=== PATIENT | male | born 1950 | race Two or more races ===

== ENCOUNTER → 2020-07-24 | Outpatient (CLI) | payer MEDICARE, OTHER ==
--- NOTE | 2020-07-24 12:22 | US ---
EXAMINATION TYPE: US duplex aorta DATE OF EXAM: 07/24/2020 COMPARISON: NONE CLINICAL HISTORY: 70-year-old male I99.8 Vascular calcification. TECHNIQUE: Multiple sonographic images of the abdominal aorta are obtained. FINDINGS: EXAM MEASUREMENTS: Abdominal Aorta largest diameter: Proximal: 2.4 x 1.8 cm. Mid: 1.8 x 1.8 cm. Distal: 1.5 x 1.4 cm Bifurcation: obscured by bowel gas Moderate atherosclerotic irregularity and calcifications are present throughout. Seed Cleaning Manager notes: Technically difficult, limited study, large midline hernia, and extensive overlyi ng bowel gas. Limited visualization. IMPRESSION: 1. Technically difficult and limited exam due to combination of bowel gas and a large midline hernia as reported by the railroad track repair supervisor. Clinically correlate. 2. No visualized AAA. Moderate atherosclerotic changes throughout the abdominal aorta.
== END | disposition home or self-care (01) ==
LOC: RADUSWWP 09:41
PROVIDERS: ATTEND Family Medicine
DX: I70.0 Atherosclerosis of aorta (principal); K46.9 Unspecified abdominal hernia without obstruction or gangrene
CPT/HCPCS: 93979

== ENCOUNTER 2021-06-22 07:49 | Inpatient (IN) | payer MEDICARE, OTHER ==
[2021-06-22] MEDS ORDERED: ALBUTEROL NEBULIZED 2.5 MG/3 ML INHALATION STA (07:53)
[2021-06-22] MEDS ORDERED: IPRATROPIUM 0.5 MG/2.5 ML NEBU INHALATION STA (07:53)
--- NOTE | 2021-06-22 08:20 | ED ---
General Adult HPI - General Chief complaint: Shortness of Breath Stated complaint: MOISÉS Time Seen by Provider: 06/22/21 07:53 Source: patient, EMS, RN notes reviewed, old records reviewed Mode of arrival: EMS Limitations: no limitations - History of Present Illness Initial comments: 71-year-old male presented by EMS with dyspnea. Patient's symptoms began approximately one hour prior to arrival. He states he has had some significant cough. History is limited secondary to patient's respiratory distress. He denies central chest pain. Denies fever. He states he has been vaccinated against coronavirus. Patient was found to be hypoxic and hypertensive by EMS. He was placed on BiPAP, given Solu-Medrol, Atrovent, albuterol and nitroglycerin during transport. - Related Data Home Medications Medication Instructions Recorded Confirmed ALPRAZolam [Xanax] 0.25 mg PO TID PRN 06/22/21 06/22/21 Aspirin EC [Ecotrin Low Dose] 81 mg PO DAILY 06/22/21 06/22/21 Atorvastatin [Lipitor] 40 mg PO HS 06/22/21 06/22/21 Ergocalciferol [Vitamin D2 (1250 1,250 mcg PO QMONTHLY 06/22/21 06/22/21 Mcg = 23674 Iu)] Fenofibrate [Lofibra] 160 mg PO DAILY 06/22/21 06/22/21 Glucagon Emergency Kit 1 mg IM ONCE PRN 06/22/21 06/22/21 HYDROcodone/APAP 10-325MG [[place] 1 tab PO TID PRN 06/22/21 06/22/21 10-325] INSULIN ASPART (NovoLOG) [NovoLOG 11 units SQ W/BRKFST 06/22/21 06/22/21 (formulary)] INSULIN ASPART (NovoLOG) [NovoLOG 16 units SQ W/SUPPER 06/22/21 06/22/21 (formulary)] Insulin Detemir [Levemir Flextouch 74 units SQ DAILY 06/22/21 06/22/21 Pen] Metoprolol Tartrate [Lopressor] 25 mg PO DAILY 06/22/21 06/22/21 Nitroglycerin Sl Tabs [Nitrostat] 0.4 mg SUBLINGUAL Q5M PRN 06/22/21 06/22/21 Omeprazole 20 mg PO DAILY 06/22/21 06/22/21 Pregabalin [Lyrica] 150 mg PO TID 06/22/21 06/22/21 Semaglutide [Ozempic] 0.25 mg SQ FR 06/22/21 06/22/21 busPIRone HCL 15 mg PO TID 06/22/21 06/22/21 lisinopriL [Prinivil] 20 mg PO DAILY 06/22/21 06/22/21 sitaGLIPtin [Januvia] 100 mg PO DAILY 06/22/21 06/22/21 Allergies Allergy/AdvReac Type Severity Reaction Status Date / Time No Known Allergies Allergy Verified 06/22/21 09:28 Review of Systems ROS Statement: Those systems with pertinent positive or pertinent negative responses have been documented in the HPI. ROS Other: All systems not noted in ROS Statement are negative. Past Medical History Past Medical History: Unable to Obtain History of Any Multi-Drug Resistant Organisms: None Reported Past Surgical History: Unable to Obtain Past Psychological History: No Psychological Hx Reported Past Alcohol Use History: Unable to Obtain Past Drug Use History: Unable to Obtain General Exam Limitations: no limitations General appearance: alert, anxious, in distress Head exam: Present: atraumatic, normocephalic Eye exam: Present: normal appearance, PERRL Neck exam: Present: normal inspection. Absent: tenderness, meningismus Respiratory exam: Present: respiratory distress, wheezes, rhonchi, accessory muscle use, decreased breath sounds Cardiovascular Exam: Present: normal rhythm, tachycardia GI/Abdominal exam: Present: soft. Absent: distended, tenderness, guarding Extremities exam: Present: normal inspection, normal capillary refill. Absent: pedal edema Neurological exam: Present: alert, oriented X3, CN II-XII intact. Absent: motor sensory deficit Psychiatric exam: Present: anxious Skin exam: Present: warm, dry, intact. Absent: cyanosis, diaphoretic Course Vital Signs 06/22/21 06/22/21 06/22/21 07:53 08:07 08:20 Temperature 100.6 F H Pulse Rate 149 H 130 H 125 H Respiratory 18 20 Rate Blood Pressure 157/96 105/70 O2 Sat by Pulse 88 L 100 Oximetry 06/22/21 06/22/21 06/22/21 08:31 08:51 09:08 Temperature Pulse Rate 130 H 133 H 122 H Respiratory 20 18 Rate Blood Pressure 88/62 92/60 O2 Sat by Pulse 97 98 Oximetry 06/22/21 09:57 Temperature Pulse Rate 110 H Respiratory 20 Rate Blood Pressure 87/58 O2 Sat by Pulse 99 Oximetry EKG Findings - EKG Comments: EKG Findings:: EKG: Sinus tachycardia, rightward axis, rate of 132, IL interval 160, QRS duration 82, QTC 431, no ST segment elevation Medical Decision Making - Medical Decision Making 71-year-old male with dyspnea and cough. He has a low-grade fever. I did initiate workup for this patient. Chest x-ray showed multifocal pneumonia versus CHF. The sudden onset did point towards congestive heart failure or pulm onary embolism. However CT angiography is negative for pulmonary embolism, the BMP and troponin are negative. Patient will be treated for pneumonia at this time. Started on azithromycin and ceftriaxone, given fluid in the emergency department. I did discuss case with Dr. Galan who will admit. Normal CBC, normal electrolytes and kidney function, negative troponin, negative BNP, positive lactic acid at 3.7 treated with IV hydration and fluid boluses. - Lab Data Result diagrams: 06/22/21 08:13 06/22/21 08:13 Lab Results 06/22/21 06/22/21 06/22/21 Range/Units 08:13 08:13 08:13 WBC 7.0 (3.8-10.6) k/uL RBC 4.99 (4.30-5.90) m/uL Hgb 16.2 (13.0-17.5) gm/dL Hct 46.7 (39.0-53.0) % MCV 93.7 (80.0-100.0) fL MCH 32.4 (25.0-35.0) pg MCHC 34.6 (31.0-37.0) g/dL RDW 13.5 (11.5-15.5) % Plt Count 143 L (150-450) k/uL MPV 10.0 Neutrophils % 57 % Lymphocytes % 33 % Monocytes % 2 % Eosinophils % 6 % Basophils % 0 % Neutrophils # 4.0 (1.3-7.7) k/uL Lymphocytes # 2.3 (1.0-4.8) k/uL Monocytes # 0.1 (0-1.0) k/uL Eosinophils # 0.4 (0-0.7) k/uL Basophils # 0.0 (0-0.2) k/uL PT 10.6 (9.0-12.0) sec INR 1.0 (<1.2) APTT 21.6 L (22.0-30.0) sec D-Dimer 1.78 H (<0.60) mg/L FEU VBG pH (7.31-7.41) VBG pCO2 (37-51) mmHg VBG HCO3 (24-28) mmol/L Sodium 138 (137-145) mmol/L Potassium 4.4 (3.5-5.1) mmol/L Chloride 104 (98-107) mmol/L Carbon Dioxide 21 L (22-30) mmol/L Anion Gap 13 mmol/L BUN 14 (9-20) mg/dL Creatinine 1.09 (0.66-1.25) mg/dL Est GFR (CKD-EPI)AfAm 80 (>60 ml/min/1.73 sqM) Est GFR (CKD-EPI)NonAf 69 (>60 ml/min/1.73 sqM) Glucose 145 H (74-99) mg/dL Plasma Lactic Acid Joshua (0.7-2.0) mmol/L Calcium 9.1 (8.4-10.2) mg/dL Magnesium 1.6 (1.6-2.3) mg/dL Total Bilirubin 1.1 (0.2-1.3) mg/dL AST 42 (17-59) U/L ALT 25 (4-49) U/L Alkaline Phosphatase 209 H (38-126) U/L Troponin I (0.000-0.034) ng/mL NT-Pro-B Natriuret Pep pg/mL Total Protein 7.5 (6.3-8.2) g/dL Albumin 4.3 (3.5-5.0) g/dL Coronavirus (PCR) (Not Detectd) 06/22/21 06/22/21 06/22/21 Range/Units 08:13 08:13 08:13 WBC (3.8-10.6) k/uL RBC (4.30-5.90) m/uL Hgb (13.0-17.5) gm/dL Hct (39.0-53.0) % MCV (80.0-100.0) fL MCH (25.0-35.0) pg MCHC (31.0-37.0) g/dL RDW (11.5-15.5) % Plt Count (150-450) k/uL MPV Neutrophils % % Lymphocytes % % Monocytes % % Eosinophils % % Basophils % % Neutrophils # (1.3-7.7) k/uL Lymphocytes # (1.0-4.8) k/uL Monocytes # (0-1.0) k/uL Eosinophils # (0-0.7) k/uL Basophils # (0-0.2) k/uL PT (9.0-12.0) sec INR (<1.2) APTT (22.0-30.0) sec D-Dimer (<0.60) mg/L FEU VBG pH (7.31-7.41) VBG pCO2 (37-51) mmHg VBG HCO3 (24-28) mmol/L Sodium (137-145) mmol/L Potassium (3.5-5.1) mmol/L Chloride (98-107) mmol/L Carbon Dioxide (22-30) mmol/L Anion Gap mmol/L BUN (9-20) mg/dL Creatinine (0.66-1.25) mg/dL Est GFR (CKD-EPI)AfAm (>60 ml/min/1.73 sqM) Est GFR (CKD-EPI)NonAf (>60 ml/min/1.73 sqM) Glucose (74-99) mg/dL Plasma Lactic Acid Joshua 3.7 H* (0.7-2.0) mmol/L Calcium (8.4-10.2) mg/dL Magnesium (1.6-2.3) mg/dL Total Bilirubin (0.2-1.3) mg/dL AST (17-59) U/L ALT (4-49) U/L Alkaline Phosphatase (38-126) U/L Troponin I <0.012 (0.000-0.034) ng/mL NT-Pro-B Natriuret Pep 21 pg/mL Total Protein (6.3-8.2) g/dL Albumin (3.5-5.0) g/dL Coronavirus (PCR) (Not Detectd) 06/22/21 06/22/21 Range/Units 08:13 08:13 WBC (3.8-10.6) k/uL RBC (4.30-5.90) m/uL Hgb (13.0-17.5) gm/dL Hct (39.0-53.0) % MCV (80.0-100.0) fL MCH (25.0-35.0) pg MCHC (31.0-37.0) g/dL RDW (11.5-15.5) % Plt Count (150-450) k/uL MPV Neutrophils % % Lymphocytes % % Monocytes % % Eosinophils % % Basophils % % Neutrophils # (1.3-7.7) k/uL Lymphocytes # (1.0-4.8) k/uL Monocytes # (0-1.0) k/uL Eosinophils # (0-0.7) k/uL Basophils # (0-0.2) k/uL PT (9.0-12.0) sec INR (<1.2) APTT (22.0-30.0) sec D-Dimer (<0.60) mg/L FEU VBG pH 7.35 (7.31-7.41) VBG pCO2 42 (37-51) mmHg VBG HCO3 22 L (24-28) mmol/L Sodium (137-145) mmol/L Potassium (3.5-5.1) mmol/L Chloride (98-107) mmol/L Carbon Dioxide (22-30) mmol/L Anion Gap mmol/L BUN (9-20) mg/dL Creatinine (0.66-1.25) mg/dL Est GFR (CKD-EPI)AfAm (>60 ml/min/1.73 sqM) Est GFR (CKD-EPI)NonAf (>60 ml/min/1.73 sqM) Glucose (74-99) mg/dL Plasma Lactic Acid Joshua (0.7-2.0) mmol/L Calcium (8.4-10.2) mg/dL Magnesium (1.6-2.3) mg/dL Total Bilirubin (0.2-1.3) mg/dL AST (17-59) U/L ALT (4-49) U/L Alkaline Phosphatase (38-126) U/L Troponin I (0.000-0.034) ng/mL NT-Pro-B Natriuret Pep pg/mL Total Protein (6.3-8.2) g/dL Albumin (3.5-5.0) g/dL Coronavirus (PCR) Not Detected (Not Detectd) Critical Care Time Critical Care Time: Yes Total Critical Care Time: 35 Disposition Clinical Impression: Community acquired pneumonia Disposition: ADMITTED IP TO THIS [facility] Condition: Stable Is patient prescribed a controlled substance at d/c from ED?: No Referrals: Antoni Galan MD [Primary Care Provider] - 1-2 days Decision to Admit Reason: Admit from EC Decision Date: 06/22/21 Decision Time: 10:44
[2021-06-22 08:22] LABS: Basophils % (A) 0 %; Eosinophils # (A) 0.4 k/uL (0-0.7); Eosinophils % (A) 6 %; HCT 46.7 % (39.0-53.0); HGB 16.2 gm/dL (13.0-17.5); Lymphocytes # (A) 2.3 k/uL (1.0-4.8); Lymphocytes % (A) 33 %; MCH 32.4 pg (25.0-35.0); MCHC 34.6 g/dL (31.0-37.0); MCV 93.7 fL (80.0-100.0); Monocytes # (A) 0.1 k/uL (0-1.0); Monocytes % (A) 2 %; Neutrophils % (A) 57 %; Platelet Count 143 k/uL (150-450); RBC 4.99 m/uL (4.30-5.90); RDW 13.5 % (11.5-15.5)
[2021-06-22 08:24] LABS: VBG PH 7.35 (7.31-7.41)
[2021-06-22] MEDS ORDERED: SODIUM CHLORIDE 0.9% 500 ML 500 ML IV ONE ×2 (08:52→10:04)
--- NOTE | 2021-06-22 08:55 | XR ---
EXAMINATION TYPE: XR chest 1V portable DATE OF EXAM: 06/22/2021 COMPARISON: 07/09/2010 HISTORY: Shortness of breath TECHNIQUE: Single frontal view of the chest is obtained. FINDINGS: A diffuse multifocal areas of infiltrate. Heart size normal. No pneumothorax. Tiny pleural effusions not excluded. Heart size stable. Arthropathy of the shoulders. IMPRESSION: Multifocal diffuse infiltrates correlate for pneumonia otherwise consider pulmonary jody a.
[2021-06-22 08:58] LABS: Albumin 4.3 g/dL (3.5-5.0); Calcium 9.1 mg/dL (8.4-10.2); Total Bilirubin 1.1 mg/dL (0.2-1.3); Total Protein 7.5 g/dL (6.3-8.2)
[2021-06-22 08:59] LABS: Magnesium 1.6 mg/dL (1.6-2.3); Potassium 4.4 mmol/L (3.5-5.1)
[2021-06-22 09:07] LABS: Prothrombin Time 10.6 sec (9.0-12.0)
[2021-06-22 09:08] LABS: Partial Thromboplastin Time 21.6 sec (22.0-30.0)
[2021-06-22] MEDS ORDERED: AZITHROMYCIN 500 MG in SODIUM CHLORIDE 0.9% 250 ML IVPB STA (09:10)
[2021-06-22] MEDS ORDERED: cefTRIAXone IN SWFI 1,000 MG/10 ML SYRINGE IVP STA (09:10)
[2021-06-22] MEDS ORDERED: ACETAMINOPHEN TAB 500 MG TAB PO STA (09:45)
--- NOTE | 2021-06-22 10:36 | CT ---
CT CHEST FOR PULMONARY EMBOLISM. EXAMINATION TYPE: CT angio chest DATE OF EXAM: 06/22/2021 INDICATION: PE CT DLP: 460.9 mGycm, Automated exposure control for dose reduction was used. CONTRAST: Patient injected with 100 mL of Isovue 370. COMPARISON: CT chest 07/10/2010 TECHNIQUE: CT of the chest is performed on a spiral scan at 2 mm thick sections. Study is performed with intravenous contrast timed for evaluation for pulmonary embolism. This will limit additional po rtions of the evaluation. 3-D MIP images reconstructed by the technologist are reviewed on the compu ter in the coronal and sagittal planes. FINDINGS: No persistent filling defects are evident to suggest an acute pulmonary embolism. No mediastinal or hilar adenopathy enlarged by CT criteria is evident. The ascending aorta diameter at the level of the main pulmonary artery is 3.1 cm. The main pulmonary artery diameter at the bifur cation is 3.0 cm. Bilateral lower lobe consolidations are evident with air bronchograms right upper lobe consolidation is also noted. Findings are nonspecific and can be compatible with pneumonia. Atypical pneumonia shou ld be considered. Limited CT section through the upper abdomen are unremarkable. IMPRESSIONS: 1. No acute pulmonary embolus. 2. Diffuse bilateral lung consolidations. Correlate for atypical pneumonia.
[2021-06-22] MEDS ORDERED: PNEUMONIA PROTOCOL UTILIZED 1 EACH MISC PO PRN (10:38)
[2021-06-22] MEDS: SODIUM CHLORIDE 0.9% 1,000 ML IV SCH (10:47)
[2021-06-22 16:51] LABS: Glucose,Whole Blood 499 mg/dL (75-99)
[2021-06-22] MEDS ORDERED: ALPRAZolam 0.25 MG TAB PO PRN (18:05)
[2021-06-22] MEDS ORDERED: HYDROcodone/APAP 10-325MG 1 EACH TAB PO PRN (18:05)
[2021-06-22 20:17] LABS: Glucose,Whole Blood 588 mg/dL (75-99)
[2021-06-22 20:17] LABS: Glucose,Whole Blood >600 mg/dL (75-99)
[2021-06-22 20:18] LABS: Glucose,Whole Blood >600 mg/dL (75-99)
[2021-06-22 20:27] LABS: Glucose,Whole Blood 595 mg/dL (75-99)
[2021-06-22] MEDS ORDERED: ATORVASTATIN 40 MG TAB PO SCH (21:00)
[2021-06-22] MEDS ORDERED: IPRATROPIUM-ALBUTEROL 3 ML NEB INHALATION PRN (21:03)
[2021-06-22] MEDS ORDERED: INSULIN DETEMIR (LEVEMIR) 100 UNIT/ML SYR SQ ONE (21:15)
[2021-06-22] MEDS ORDERED: busPIRone HCl 5 MG TAB PO SCH (22:00)
[2021-06-22] MEDS ORDERED: PREGABALIN 75 MG CAP PO SCH (22:00)
[2021-06-22 23:54] LABS: Glucose,Whole Blood 458 mg/dL (75-99)
[2021-06-23] MEDS: SODIUM CHLORIDE 0.9% 1,000 ML IV SCH ×4 (05:01→17:07)
[2021-06-23 06:16] LABS: Glucose,Whole Blood 143 mg/dL (75-99)
[2021-06-23] MEDS: INSULIN ASPART (NovoLOG) 100 UNIT/ML VIAL SQ SCH ×4 (06:27→21:01)
[2021-06-23] MEDS ORDERED: INSULIN DETEMIR (LEVEMIR) 100 UNIT/ML SYR SQ SCH ×2 (07:00→09:00)
[2021-06-23] MEDS ORDERED: PANTOPRAZOLE 40 MG TABLET PO SCH (07:30)
[2021-06-23] MEDS ORDERED: INSULIN ASPART (NovoLOG) 100 UNIT/ML VIAL SQ SCH ×3 (07:30→17:30)
--- NOTE | 2021-06-23 08:17 | XR ---
EXAMINATION TYPE: XR chest 2V DATE OF EXAM: 06/23/2021 COMPARISON: 06/22/2021 HISTORY: 71 years Male. STUDY INDICATION GIVEN: pneumonia . TECHNIQUE: Frontal and lateral chest radiographs IMPRESSION: Patchy bibasilar and right upper opacities again seen with mild interval improvement likely on the ba sis of multifocal pneumonia with subsegmental atelectasis and/or mild pulmonary edema. No pneumothora x or pleural effusion seen. Heart is not enlarged. Osseous structures appear similar to prior study.
[2021-06-23] MEDS: METOPROLOL TARTRATE 25 MG TAB PO SCH (08:18)
[2021-06-23] MEDS: IPRATROPIUM-ALBUTEROL 3 ML NEB INHALATION SCH ×4 (09:00→19:35)
[2021-06-23] MEDS ORDERED: lisinopriL 20 MG TAB PO SCH (09:00)
[2021-06-23] MEDS ORDERED: FENOFIBRATE 160 MG TAB PO SCH (09:00)
[2021-06-23] MEDS ORDERED: ASPIRIN 81 MG PO SCH (09:00)
[2021-06-23] MEDS: AZITHROMYCIN 500 MG in SODIUM CHLORIDE 0.9% 250 ML IVPB SCH (09:04)
[2021-06-23 10:35] LABS: HCT 36.7 % (39.0-53.0); MCHC 34.5 g/dL (31.0-37.0); MCV 95.8 fL (80.0-100.0); Mean Platelet Volume 12.2; RBC 3.83 m/uL (4.30-5.90); RDW 13.6 % (11.5-15.5); WBC 9.2 k/uL (3.8-10.6)
[2021-06-23 10:38] LABS: ALT 23 U/L (4-49); AST 27 U/L (17-59); African American GFR (CKD) >90 (>60 ml/min/1.73 sqM); Albumin 3.2 g/dL (3.5-5.0); Alkaline Phosphatase 143 U/L (38-126); Anion Gap 8 mmol/L; Blood Urea Nitrogen 21 mg/dL (9-20); Calcium 8.7 mg/dL (8.4-10.2); Carbon Dioxide 22 mmol/L (22-30); Chloride 106 mmol/L (98-107); Glucose 334 mg/dL (74-99); Non-African American GFR(CKD) 84 (>60 ml/min/1.73 sqM); Potassium 4.3 mmol/L (3.5-5.1); Sodium 136 mmol/L (137-145); Total Bilirubin 0.4 mg/dL (0.2-1.3); Total Protein 5.6 g/dL (6.3-8.2)
[2021-06-23 10:46] LABS: HGB 12.6 gm/dL (13.0-17.5)
[2021-06-23 11:51] LABS: Glucose,Whole Blood 330 mg/dL (75-99)
[2021-06-23 13:46] LABS: Platelet Count 68 k/uL (150-450)
[2021-06-23 13:49] LABS: Band Neutrophils % 5 %; Metamyelocytes # (M) 0.09 k/uL (0); Metamyelocytes % 1 %; Monocytes # (M) 0.74 k/uL (0-1.0); Neutrophils % (M) 76 %; Nucleated Red Blood Cells 0 /100 WBC (0-0); Total Cells Counted 200
[2021-06-23] MEDS: HYDROcodone/APAP 5-325MG 1 EACH TAB PO PRN ×2 (15:47→23:03)
[2021-06-23 17:07] LABS: Glucose,Whole Blood 297 mg/dL (75-99)
--- NOTE | 2021-06-23 17:48 | HP ---
HISTORY AND PHYSICAL CHIEF COMPLAINT: Difficulty breathing. HISTORY OF PRESENT ILLNESS: This is another admission for this 71-year-old [place] male with insulin- dependent diabetes mellitus with which he is very noncompliant. He also smokes and drinks a great deal of alcohol. He has been admitted for alcoholic pancreatitis. He came to the emergency room with a complaint of shortness of breath, which he had for several days. In the emergency room, he was quite hypoxic and was given the diagnosis of pneumonitis. His D-dimer was up slightly at 1.1, but he did not have a clinical picture of pulmonary embolism and a CTA was ordered. He had chills a day or 2 before coming to emergency room. REVIEW OF SYSTEMS: He denies any focal neurologic deficits, headache, chest pain, shortness of breath, abdominal pain, nausea, vomiting, hematemesis, melena, hematochezia, jaundice, dysuria, frequency, urgency, hematuria, incontinence, etc. Past medical history, family history and personal and social histories are all otherwise unremarkable or noncontributory. He is not allergic to any medication. The medicines that he is taking are sketchy and that he is very noncompliant. Our list indicates he is supposed to be on fenofibrate 160 mg a day, Xanax 0.25 t.i.d. p.r.n., Levemir 74 units a day, which I doubt. He is also on Lipitor 40, omeprazole, Metoprolol 25 once a day, BuSpar, Januvia 100 mg once a day, Ozempic 0.5 once a week, Pepcid 20 mg once a day, lisinopril 20, Lyrica, Vicodin, and sildenafil. He is supposed to be on aspirin. Continues to smoke regularly as well as drink. PHYSICAL EXAMINATION: Blood pressure 122/76, pulse of 95, respirations 38, he is afebrile. In GENERAL appeared to be short of breath, but not acutely ill. SKIN color is normal. Skin is warm, dry. Lymph nodes are not enlarged. Head, ears, eyes, nose, mouth and throat were normal. NECK veins not distended. Thyroid not enlarged. CHEST demonstrates decreased breath sounds with scattered rales and wheezing. CARDIAC exam is normal. ABDOMEN is soft and nontender. EXTREMITIES are normal. NEUROLOGICALLY he is intact. IMPRESSION: He is admitted to the hospital with diagnoses: 1. Shortness of breath, probably due to bronchial pneumonia. 2. Uncontrolled and poorly compliant management of type 2 diabetes. 3. Chronic obstructive pulmonary disease. 4. Alcoholism. 5. History of pancreatitis. PLAN: 1. Bedrest. 2. IV fluids. 3. Updrafts. 4. IV antibiotics. 5. Control blood sugars. MMODL / IJN: [id number] /
--- NOTE | 2021-06-23 17:57 | PN ---
PROGRESS NOTE CHIEF COMPLAINT: Bronchopneumonia and shortness of breath. HISTORY OF PRESENT ILLNESS: This gentleman is feeling a little bit better. He has not been febrile. PHYSICAL EXAMINATION: His chest demonstrates scattered rales and rhonchi with decreased breath sounds. Cardiac exam is normal. Abdomen is soft and nontender. IMPRESSION: 1. Bronchial pneumonia. 2. Uncontrolled diabetes. PLAN: 1. Continue with IV fluids and antibiotics. 2. Updrafts. 3. Blood sugars are improving and these will be monitored. MMODL / IJN: [id number] /
[2021-06-23 18:30] LABS: Hemoglobin A1C 8.1 % (4.0-6.0)
[2021-06-23 20:39] LABS: Glucose,Whole Blood 370 mg/dL (75-99)
[2021-06-23] MEDS: INSULIN DETEMIR (LEVEMIR) 100 UNIT/ML SYR SQ SCH (21:01)
[2021-06-24] MEDS: SODIUM CHLORIDE 0.9% 1,000 ML IV SCH ×3 (02:08→14:04)
[2021-06-24 06:15] LABS: Glucose,Whole Blood 61 mg/dL (75-99)
[2021-06-24 06:29] LABS: Glucose,Whole Blood 63 mg/dL (75-99)
[2021-06-24 06:43] LABS: Glucose,Whole Blood 80 mg/dL (75-99)
[2021-06-24] MEDS: INSULIN ASPART (NovoLOG) 100 UNIT/ML VIAL SQ SCH ×4 (06:51→21:07)
[2021-06-24] MEDS: IPRATROPIUM-ALBUTEROL 3 ML NEB INHALATION SCH ×4 (08:24→19:47)
[2021-06-24] MEDS: METOPROLOL TARTRATE 25 MG TAB PO SCH (09:19)
[2021-06-24] MEDS: HYDROcodone/APAP 5-325MG 1 EACH TAB PO PRN ×3 (09:25→21:06)
[2021-06-24] MEDS: AZITHROMYCIN 500 MG in SODIUM CHLORIDE 0.9% 250 ML IVPB SCH (10:06)
[2021-06-24 11:47] LABS: Glucose,Whole Blood 171 mg/dL (75-99)
[2021-06-24 16:52] LABS: Glucose,Whole Blood 328 mg/dL (75-99)
--- NOTE | 2021-06-24 18:00 | PN ---
PROGRESS NOTE DATE OF SERVICE: 06/24/2021 CHIEF COMPLAINT: Shortness of breath and bilateral bronchial pneumonia. HISTORY OF PRESENT ILLNESS: This gentleman is doing fairly well. His temperature has been down. He is feeling better. He is a little bit less short of breath. Blood sugars are vacillating. PHYSICAL EXAMINATION: He is awake, alert and color is good. Chest demonstrates scattered rales bilaterally anterior and posteriorly. Cardiac exam is unremarkable. The abdomen is soft, nontender. IMPRESSION: 1. Bronchopneumonia. 2. Insulin dependent diabetic. 3. Chronic obstructive pulmonary disease. 4. Alcoholism. PLAN: Continue with updrafts and IV fluids as well as antibiotics. MMODL / IJN: [id number] /
[2021-06-24 20:30] LABS: Glucose,Whole Blood 375 mg/dL (75-99)
[2021-06-24] MEDS: INSULIN DETEMIR (LEVEMIR) 100 UNIT/ML SYR SQ SCH (21:07)
[2021-06-25 05:37] LABS: Glucose,Whole Blood 94 mg/dL (75-99)
[2021-06-25] MEDS: SODIUM CHLORIDE 0.9% 1,000 ML IV SCH ×4 (06:58→22:22)
[2021-06-25] MEDS: INSULIN ASPART (NovoLOG) 100 UNIT/ML VIAL SQ SCH ×4 (06:58→22:21)
[2021-06-25] MEDS: AZITHROMYCIN 500 MG in SODIUM CHLORIDE 0.9% 250 ML IVPB SCH (08:18)
[2021-06-25] MEDS: METOPROLOL TARTRATE 25 MG TAB PO SCH (08:19)
[2021-06-25] MEDS: HYDROcodone/APAP 5-325MG 1 EACH TAB PO PRN ×3 (08:19→22:20)
[2021-06-25] MEDS: IPRATROPIUM-ALBUTEROL 3 ML NEB INHALATION SCH ×4 (08:32→19:48)
--- NOTE | 2021-06-25 09:37 | CDI ---
Documentation Clarification Form Date: 06/25/2021 08:50:44 AM From: Caitlyn Wade RN CCDS Admit Date: 06/22/2021 10:38:00 AM Patient Name: Beck Quiñones Visit Number: [id number] Discharge Date: ATTENTION: The Clinical Documentation Specialists (CDI) and [facility] Coding Staff appreciate your assistance in clarifying documentation. Please respond to the clarification below the line at the bottom and electronically sign. The CDI & [facility] Coding staff will review the response and follow-up if needed. Please note: Queries are made part of the Legal Health Record. If you have any questions, please contact the author of this message via ITS. Dr. Antoni Galan Your patient is receiving the following: BiPAP 06/22 07:53 06/22 14:00; Oxygen 4L nasal cannula 06/22 17:49 - 06/24. Please clarify what condition/diagnosis is being treated. History/Risk Factors: 71-year-old female presents to the ED for having shortness of breath for several days. Medical History: Smoking and Drinking alcohol. Clinical indicators: VSS: B/P 157/96, HR 149, Temp 100.6 F Oral, RR 18, SpO2 88% BiPAP. Chest Examination: Demonstrates decreased breath sounds with scattered rales and wheezing. 06/23 H&P In the emergency room, he was quite hypoxic and was given the diagnosis of pneumonitis. 06/23 H&P. History is limited secondary to patients respiratory distress. Patient was found to be hypoxic and hypertensive by EMS. 06/22 ED note. CXR: 06/22 Multifocal diffuse infiltrates. CTA: 06/22 Diffuse bilateral lung consolidations. Treatment: BiPAP 06/22 07:53 06/22 14:00; Oxygen 4L nasal cannula 06/22 17:49 - 06/24. 06/22 Ventolin 5mg Inhalation x 1, 06/22 to current Duoneb 0.5mg-3mg/3ml Inhalation QID PRN, 06/23 to current Duoneb 0.5mg-3mg/3ml Inhalation QID, 06/22 Atrovent 0.5mg Inhalation x 1. Shortness of breath, probably due to bronchial pneumonia H&P, 06/23. What diagnosis are you treating with BiPAP/Oxygen? [ ] Acute Respiratory Failure [ ] No additional diagnosis [ ] Other, please specify [ ] Unable to determine (Template Last Reviewed: November 2020) MTDD
[2021-06-25 11:54] LABS: Glucose,Whole Blood 207 mg/dL (75-99)
--- NOTE | 2021-06-25 14:13 | XR ---
EXAMINATION TYPE: XR chest 2V DATE OF EXAM: 06/25/2021 COMPARISON: 06/23/2021 HISTORY: Shortness of breath TECHNIQUE: Frontal and lateral views of the chest are obtained. FINDINGS: Scattered senescent parenchymal changes noted. Hyperinflation compatible with COPD. No evidence for infiltrate. No evidence for atelectasis. Heart size is stable. Mediastinal structures are stable and grossly unremarkable. No evidence for hilar prominence. Degenerative changes dorsal spine. IMPRESSION: 1. No evidence for acute pulmonary disease.
[2021-06-25 16:52] LABS: Glucose,Whole Blood 233 mg/dL (75-99)
--- NOTE | 2021-06-25 20:03 | PN ---
PROGRESS NOTE CHIEF COMPLAINT: Bronchopneumonia. HISTORY OF PRESENT ILLNESS: This gentleman is generally improving. He has not been febrile. He is less short of breath. PHYSICAL EXAMINATION: Chest still demonstrates rales scattered about and occasional rhonchi. Cardiac exam is normal. Abdomen is soft, nontender. IMPRESSION: 1. Bronchial pneumonia. 2. Diabetes. PLAN: Continue with current program and probably be able to discharge in the next day or 2. MMODL / IJN: [id number] /
[2021-06-25 20:43] LABS: Glucose,Whole Blood 363 mg/dL (75-99)
--- NOTE | 2021-06-25 21:38 | MISC ---
MISCELLANOUS REPORT No additional diagnoses. MMODL / IJN: [id number] /
[2021-06-25] MEDS: INSULIN DETEMIR (LEVEMIR) 100 UNIT/ML SYR SQ SCH (22:21)
[2021-06-26 05:57] LABS: Glucose,Whole Blood 99 mg/dL (75-99)
[2021-06-26 06:49] VITALS: RESP 16
[2021-06-26] MEDS: IPRATROPIUM-ALBUTEROL 3 ML NEB INHALATION SCH ×2 (07:18→12:17)
[2021-06-26] MEDS: INSULIN ASPART (NovoLOG) 100 UNIT/ML VIAL SQ SCH ×2 (07:44→11:58)
[2021-06-26] MEDS: SODIUM CHLORIDE 0.9% 1,000 ML IV SCH (08:06)
[2021-06-26] MEDS: HYDROcodone/APAP 5-325MG 1 EACH TAB PO PRN (08:06)
[2021-06-26] MEDS: AZITHROMYCIN 500 MG in SODIUM CHLORIDE 0.9% 250 ML IVPB SCH (08:06)
[2021-06-26] MEDS: METOPROLOL TARTRATE 25 MG TAB PO SCH (08:06)
[2021-06-26 11:52] LABS: Glucose,Whole Blood 182 mg/dL (75-99)
--- NOTE | 2021-06-26 11:58 | MISC ---
MISCELLANOUS REPORT QUERY: Shortness of breath, probably due to bronchial pneumonia. What diagnosis are you treating these with BiPAP? I guess acute respiratory failure, but I do not know the answer to that. YOEL / PAXTON: [id number] /
[2021-06-26 12:57] VITALS: BP 107/60; PULSE 76; TEMP 98.1
--- NOTE | 2021-06-26 19:59 | DS ---
DISCHARGE SUMMARY CHIEF COMPLAINT: Shortness of breath. HISTORY OF PRESENT ILLNESS AND PHYSICAL EXAMINATION: Details of this man's history and physical can be found in the initial workup. LABORATORY STUDIES: While he was in the hospital, he had laboratory studies, details of which can be found in the laboratory section of his chart. COURSE IN THE HOSPITAL: After admission placed, he was placed on bedrest, started on intravenous fluids, updrafts, antibiotics and nasal O2. His chest slowly cleared over several days. His blood sugar was quite high when he came in. This was managed. He was doing well. He was afebrile and not short of breath and was felt he could be discharged on June 26. He will be seen in the office in several days. FINAL DIAGNOSES: 1. Bilateral bronchial pneumonia. 2. Uncontrolled insulin-dependent diabetes mellitus. 3. History of chronic alcoholism. 4. History of pancreatitis. OPERATIONS: None. CONSULTATIONS: Pulmonology. He is improved. MMRUSS / PAXTON: [id number] /
[2021-06-26] MEDS ORDERED: CEFDINIR 300 MG CAP PO SCH (21:00)
[2021-06-27] MEDS ORDERED: CEFDINIR 300 MG CAP PO SCH (09:00)
[2021-06-27] MEDS ORDERED: AZITHROMYCIN 500 MG TAB PO SCH (09:00)
== END 2021-06-26 13:07 | disposition home or self-care (01) | DRG 193 ==
LOC: EC 07:49 → 3SCARD 10:38
PROVIDERS: ADMIT Family Medicine; ATTEND Family Medicine
PROC: 5A09357 Assistance with Respiratory Ventilation, Less than 24 Consecutive Hours, Continuous Positive Airway Pressure (ICD-10-PCS; principal; 2021-06-22)
DX: J18.0 Bronchopneumonia, unspecified organism (principal); J96.01 Acute respiratory failure with hypoxia; J44.0 Chronic obstructive pulmonary disease with (acute) lower respiratory infection; Z86.19 Personal history of other infectious and parasitic diseases; Z20.822 Contact with and (suspected) exposure to COVID-19; E11.65 Type 2 diabetes mellitus with hyperglycemia; F10.20 Alcohol dependence, uncomplicated; Z79.4 Long term (current) use of insulin; Z79.82 Long term (current) use of aspirin; Z91.19 Patient's noncompliance with other medical treatment and regimen
CPT/HCPCS: 36415; 71045; 71046; 71275; 80053; 82803; 83036; 83605; 83735; 83880; 84484; 85025; 85379; 85610; 85730; 87040; 87070; 87205; 87635; 93005; 94640; 94660; 94760; 96361; 96365; 96375; 99291

== ENCOUNTER 2022-02-15 08:32 | Day surgery (SDC) | payer MEDICARE, OTHER ==
[~2022-02-15 08:32] MED LIST: LACTATED RINGERS 1,000 ML IV SCH; LIDOCAINE 1% (10MG/ML) FOR IV START INTRADERMA PRN; ONDANSETRON 4 MG/2 ML VIAL IVP PRN
[2022-02-15 09:30] VITALS: TEMP 97
[2022-02-15 09:34] LABS: Glucose,Whole Blood 144 mg/dL (75-99)
[2022-02-15] MEDS ORDERED: fentaNYL (PF) 50 MCG/ML 2 ML AMP ONE (09:36)
[2022-02-15] MEDS ORDERED: PROPOFOL 10 MG/ML 20 ML VIAL IV ONE (09:36)
[2022-02-15] MEDS ORDERED: MIDAZOLAM 2 MG/2 ML VIAL ONE (09:36)
--- NOTE | 2022-02-15 09:54 | P.PCN ---
Date of Procedure: 02/15/22 Preoperative Diagnosis: Screening Postoperative Diagnosis: Overall, normal appearing colon in what was visible. Poor prep Procedure(s) Performed: Colonoscopy Anesthesia: MAC Surgeon: Polly Hassan Pathology: none sent Condition: stable Disposition: same day Indications for Procedure: 72-year-old male presents today for screening colonoscopy. Risks, benefits and alternatives were provided. Operative Findings: Poor prep Otherwise normal-appearing in what was visualized Description of Procedure: The patient was brought into the endoscopy suite and placed in left lateral decubitus position. Adequate sedation was achieved using conscious sedation. A digital rectal exam was performed and internal hemorrhoids were palpated. An endoscope was then placed in the rectum and advanced to the cecum as identified by landmarks including the appendiceal orifice and the ileocecal valve. The prep was poor. The colonoscope was then slowly withdrawn, examining for any mucosal abnormalities. The cecum, ascending, transverse, descending and sigmoid colon were visualized with some obstruction secondary to thick liquid stool. There were no obvious large neoplastic lesions noted throughout the colon. There were no obvious polyps noted throughout the colon. There was no evidence of diverticulosis. Retroflexion was performed in the rectum and internal hemorrhoids were visible. Excess air was removed, the colonoscope withdrawn and the procedure terminated. The patient was then transferred to the recovery unit in stable condition. Repeat colonoscopy should be performed in 1 to 2 years secondary to poor prep.
[2022-02-15 09:59] VITALS: RESP 16
[2022-02-15 10:09] VITALS: BP 102/64; PULSE 67
== END 2022-02-15 10:38 | disposition home or self-care (01) ==
LOC: ORWHC2ENDO 08:32
PROVIDERS: ATTEND Surgery
DX: Z12.11 Encounter for screening for malignant neoplasm of colon (principal)
CPT/HCPCS: G0121; J2250; J3010; J2704

== ENCOUNTER → 2022-10-10 | Outpatient (CLI) | payer MEDICARE, OTHER ==
--- NOTE | 2022-10-10 14:56 | CT ---
"EXAMINATION TYPE: CT chest wo con CT DLP: 445.7 mGycm, Automated exposure control for dose reduction was used. DATE OF EXAM: 10/10/2022 2:45 PM COMPARISON: CTA chest 06/22/2021, chest radiograph 06/25/2021. CLINICAL INDICATION:Male, 72 years old with history of R06.02 R05; [facility], TECHNIQUE: Multiple axial images were obtained through the chest without IV contrast. Lack of IV or o ral contrast limits evaluation of solid and hollow organ viscera. FINDINGS: LUNGS/ PLEURA: Small left pleural effusion with associated atelectasis. Medial right upper lobe pulm onary mass with conglomerate mediastinal adenopathy. Evaluation of the borders is limited due to lack of contrast. The right hilar mass measures 8.3 x 3.7 cm with central calcification (series 3, image 22). Additional right suprahilar mass measuring up to 4.7 cm (series 3, image 13). Atelectasis of the right upper lobe due to bronchial invasion. AIRWAY: Abrupt cutoff of the right upper lobe bronchus. Due to invasion by the adjacent mass. There i s associated atelectasis of the right upper lobe. HEART: Size within normal limits. No pericardial effusion. Coronary artery calcifications. MEDIASTINUM: Mediastinal right hilar conglomerate lymphadenopathy. This is detailed above with additi onal left enlarged paratracheal lymph node measuring up to 1.2 cm short axis. VASCULATURE: No aortic aneurysm. MUSCULOSKELETAL: Destructive lytic lesion involving the T12 vertebral body with pathologic fracture o f the superior and inferior endplates. No vertebral body height loss. Additional lytic lesion partial ly visualized within the L2 vertebral body. Destructive lytic lesion involving the posterior left thi rd rib. SOFT TISSUES/LYMPH NODES: No axillary lymphadenopathy. LOWER NECK: Right supraclavicular mass measuring up to 3.4 cm (series 3, image 2). UPPER ABDOMEN: Cholelithiasis without surrounding inflammatory changes. Right adrenal gland nodule me asuring up to 1.9 cm with a Hounsfield unit of 32. Left adrenal gland nodule measuring up to 1.8 cm w ith a Hounsfield unit of 33. Adjacent loss of fat plane is a left periaortic mass measuring up to 3.9 cm with surrounding fat stranding (series 3, image 56). IMPRESSION: 1. Medial right upper lobe/hilar mass with invasion of the right upper lobe bronchus with resultant a telectasis of the right upper lobe. This is considered malignancy until proven otherwise. 2. Right supraclavicular and mediastinal/hilar conglomerate adenopathy consistent with metastasis. 3. Lytic destructive T12 vertebral body lesion with pathologic fractures involving superior and infer ior endplates. Additional destructive left posterior third rib lesion and lytic lesion within the L2 vertebral body. These are consistent with metastasis. 4. Left periaortic 3.9 cm mass consistent with metastasis. 5. Bilateral adrenal gland nodules suspicious for metastasis. 6. Small right pleural effusion. 7. Cholelithiasis. A Yellow level critical message alert has been initiated for Antoni Galan MD via the [employer] | Critical Results System on 10/10/2022 2:53 PM. This message alert has been sent to Antoni Galan MD via the preferences provided by the clinician for the receipt of Radiology Critical Fi ndings. Message ID [id number]."
== END | disposition home or self-care (01) ==
LOC: RADCTMAIN 14:11
PROVIDERS: ATTEND Family Medicine
DX: J90 Pleural effusion, not elsewhere classified (principal); K80.20 Calculus of gallbladder without cholecystitis without obstruction; E27.8 Other specified disorders of adrenal gland; J98.11 Atelectasis; M89.8X8 Other specified disorders of bone, other site; R59.0 Localized enlarged lymph nodes
CPT/HCPCS: 71250

== ENCOUNTER → 2022-11-07 | Outpatient (CLI) | payer MEDICARE, OTHER ==
--- NOTE | 2022-11-07 13:57 | MR ---
EXAMINATION TYPE: MR brain wo/w con DATE OF EXAM: 11/07/2022 COMPARISON: NONE HISTORY: Lung cancer, dizziness. TECHNIQUE: Multiplanar, multisequence images of the brain and brainstem is performed without and with IV contras t, utilizing 7.5 mL intravenous Gadavist . FINDINGS: Diffusion weighted images demonstrate no evidence of a recent infarct or other diffusion ab normality. There is mild to moderate ventricular and sulcal prominence. There are scattered foci of T2 intensity is seen throughout the white matter bilaterally. Approximately 30-40 scattered lesions a re seen. Midline structures demonstrate normal morphology. The craniocervical junction appears within normal limits. Post contrast images demonstrate enhancing 6 x 4 mm left occipital focus axial image 38 wit h slight adjacent vasogenic edema corresponding to sagittal image 63 and coronal image 55. No definit favian additional enhancing lesions are seen. The dural venous sinuses appear patent. Mild mucosal thick ening involving the ethmoid sinuses bilaterally and inferior left maxillary sinus. Patchy fluid in th e left petrous apex is present. Globes are intact bilaterally. IMPRESSION: 1. Single 6 mm metastatic focus left occipital lobe subcortical level. 2. Background [id number] diffuse cerebral atrophy and chronic small vessel ischemic changes are appreciated. 3. Possible petrous apicitis, correlate clinically.
== END | disposition home or self-care (01) ==
LOC: RADMRIMAIN 13:04
PROVIDERS: ATTEND Internal Medicine Hematology & Oncology
DX: C34.90 Malignant neoplasm of unspecified part of unspecified bronchus or lung (principal); C79.31 Secondary malignant neoplasm of brain; G31.9 Degenerative disease of nervous system, unspecified; I67.82 Cerebral ischemia
CPT/HCPCS: 70553; A9585